=== PATIENT | female | born 1980 | race Caucasian/White ===

== ENCOUNTER → 2017-05-10 | Outpatient (REF) | payer BC ==
[2017-05-12 14:12] LABS: HPV HYBRID CAPTURE II Negative (Negative)
== END ==
LOC: M LAB REF 14:45
DX: Z12.4 Encounter for screening for malignant neoplasm of cervix (principal)
CPT/HCPCS: G0123

== ENCOUNTER → 2017-05-24 | Outpatient (CLI) | payer BC | LOC: M RAD 07:40 | DX: Z12.31 Encounter for screening mammogram for malignant neoplasm of breast (principal); Z80.3 Family history of malignant neoplasm of breast ==

== ENCOUNTER → 2017-06-13 | Outpatient (CLI) | payer BC | LOC: M RAD 16:22 | DX: N63.0 Unspecified lump in unspecified breast (principal) | CPT/HCPCS: 77065 ==

== ENCOUNTER → 2018-05-16 | Outpatient (REF) | payer BC | LOC: M LAB REF 12:21 | PROVIDERS: ATTEND Physician Assistant | DX: J06.9 Acute upper respiratory infection, unspecified (principal) ==

== ENCOUNTER → 2018-05-19 | Outpatient (REF) | payer BC ==
[2018-05-24 00:06] LABS: HPV HYBRID CAPTURE II Negative (Negative)
== END ==
LOC: M LAB REF 14:13
PROVIDERS: ATTEND Advanced Practice Midwife
DX: Z12.4 Encounter for screening for malignant neoplasm of cervix (principal); Z11.51 Encounter for screening for human papillomavirus (HPV)
CPT/HCPCS: 87624; G0123

== ENCOUNTER → 2018-05-27 | Outpatient (CLI) | payer BC ==
[2018-05-27 19:38] LABS: FREE T4 0.99 NG/DL (0.76-1.46); THYROID STIMULATING HORMONE 1.55 uIU/ML (0.358-3.740)
== END ==
LOC: M WUC 09:22
PROVIDERS: ATTEND Advanced Practice Midwife
DX: E07.9 Disorder of thyroid, unspecified (principal)

== ENCOUNTER → 2019-02-12 | Outpatient (REF) | payer BC | LOC: M LAB REF 10:17 | PROVIDERS: ATTEND Physician Assistant | DX: J02.9 Acute pharyngitis, unspecified (principal) ==

== ENCOUNTER → 2020-05-13 | Outpatient (REF) | payer OTHER ==
[2020-05-13 17:51] LABS: ESTRADIOL 24.9 PG/ML; FOLLICLE STIMULATING HORMONE 4.3 mIU/mL; LUTEINIZING HORMONE 1.3 mIU/mL
== END ==
LOC: M PLALAB 15:42
PROVIDERS: ATTEND Obstetrics & Gynecology
DX: N92.1 Excessive and frequent menstruation with irregular cycle (principal)

== ENCOUNTER → 2020-06-29 | Outpatient (CLI) | payer OTHER ==
[2020-06-30 11:01] LABS: ESTRADIOL 182.9 PG/ML; FOLLICLE STIMULATING HORMONE 3.2 mIU/mL; LUTEINIZING HORMONE 6.7 mIU/mL
== END ==
LOC: M LAB 15:07
PROVIDERS: ATTEND Obstetrics & Gynecology
DX: N92.1 Excessive and frequent menstruation with irregular cycle (principal)

== ENCOUNTER → 2020-07-27 | Outpatient (REF) | payer OTHER | LOC: M LAB REF 19:09 | PROVIDERS: ATTEND Physician Assistant | DX: R30.0 Dysuria (principal) ==

== ENCOUNTER → 2020-08-04 | Outpatient (REF) | payer OTHER ==
[2020-08-04 17:49] LABS: HEMATOCRIT 40.6 % (36.0-47.0); MEAN CORPUSCULAR HEMOGLOBIN 28.6 pg (27.0-33.0); MEAN CORPUSCULAR VOLUME 89.4 fl (80.0-96.0); PLATELET COUNT, AUTOMATED 296 10^3/uL (150-450); RED BLOOD COUNT 4.54 10^6/uL (4.00-5.40); WHITE BLOOD COUNT 10.5 10^3/uL (4.0-10.0)
[2020-08-04 19:00] LABS: HIV 1&2 SCREEN CENTAUR NEGATIVE (NEGATIVE)
== END ==
LOC: M PLALAB 15:21
PROVIDERS: ATTEND Advanced Practice Midwife
DX: Z34.91 Encounter for supervision of normal pregnancy, unspecified, first trimester (principal)

== ENCOUNTER → 2020-09-01 | Outpatient (REF) | payer OTHER | LOC: M SFHCWAGY 10:02 | PROVIDERS: ATTEND Advanced Practice Midwife | DX: Z34.91 Encounter for supervision of normal pregnancy, unspecified, first trimester (principal); Z3A.01 Less than 8 weeks gestation of pregnancy ==

== ENCOUNTER → 2020-09-02 | Outpatient (CLI) | payer OTHER | LOC: M PLALAB 10:26 | PROVIDERS: ATTEND Advanced Practice Midwife | DX: O09.521 Supervision of elderly multigravida, first trimester (principal) ==

== ENCOUNTER → 2020-10-27 | Outpatient (CLI) | payer OTHER ==
--- NOTE | 2020-10-27 09:29 | REP ---
INDICATION: ANATOMY [facility] 03/24/21. COMPARISON: None. TECHNIQUE: Multiple ultrasonographic images of the gravid uterus. FINDINGS: There is a single intrauterine gestation. position is variable. heart rate is 142 beats per minute. The placenta is anterior with grade 1 maturity. There is no placenta previa. The umbilical cord inserts centrally onto the placenta. There is a three-vessel cord. Subjectively the amniotic fluid volume is normal. The cervix measures 4.2 cm length. The composite ultrasound gestational age by today's study is 19 weeks 4 days with an ERIC of 03/19/2021. The LMP is unknown. weight is 300 g/0 lb, 10 oz. This is the 78 percentile for 19 weeks 0 days. The following anatomic structures are identified and are unremarkable: Cranium, cavum septum pellucidum, falx, intracranial ventricles, choroid plexus, cerebellum, cisterna magna, facial profile, orbits, upper lip, lungs, cardiac rhythm, four-chamber heart, cardiac right left ventricular outflow tracts, diaphragm, stomach, abdominal wall, right and left kidneys, bladder, spine, right and left upper extremities, right left lower extremities and 3 vessel cord. IMPRESSION: No anomalies are identified. <Electronically signed by Medardo Mcintosh > 10/27/20 [id number]
== END ==
LOC: M WHC 07:31
PROVIDERS: ATTEND Advanced Practice Midwife
DX: Z36.9 Encounter for antenatal screening, unspecified (principal); Z3A.19 19 weeks gestation of pregnancy

== ENCOUNTER → 2020-12-24 | Outpatient (CLI) | payer OTHER ==
[2020-12-24 17:51] LABS: HEMATOCRIT 31.9 % (36.0-47.0); HEMOGLOBIN 10.9 g/dl (12.0-15.5); MEAN CORPUSCULAR HEMOGLOBIN 30.4 pg (27.0-33.0); MEAN CORPUSCULAR HGB CONC 34.2 g/dl (32.0-36.5); MEAN CORPUSCULAR VOLUME 88.9 fl (80.0-96.0); PLATELET COUNT, AUTOMATED 293 10^3/uL (150-450); RED BLOOD COUNT 3.59 10^6/uL (4.00-5.40)
== END ==
LOC: M PLALAB 14:24
PROVIDERS: ATTEND Advanced Practice Midwife
DX: O09.512 Supervision of elderly primigravida, second trimester (principal)

== ENCOUNTER → 2021-01-26 | Outpatient (CLI) | payer OTHER ==
--- NOTE | 2021-01-27 14:28 | REP ---
INDICATION: GROWTH, UTERINE SIZE DATE DISCREPANCY. COMPARISON: 10/27/2020. TECHNIQUE: Real-time sonographic evaluation of the gravid uterus performed. FINDINGS: Estimated gestational age is32 weeks 0 days, EDC 03/23/2021. Today's measurements indicate appropriate growth. Presentation: Cephalic Placenta anterior, grade 1, without evidence of placenta previa. heart rate is recorded at 156 beats per minute. Amniotic fluid is subjectively normal. PAL 21.1, normal 8.6-24.2. Closed cervical length is measured at 4.5 cm. Biometry chart: BPD: 83 mm, 33 weeks 4 days, 72nd percentile. HC: 306 mm, 34 weeks 1 days, 81st percentile AC: 302 mm, 34 weeks 1 days, 83rd percentile Femur length: 61 mm, 31 weeks 6 days, 47th percentile HC to AC ratio: 1.01, normal range 0.95-1.14. Estimated weight: 2197g, 83rd percentile. IMPRESSION: Viable single intrauterine gestation as above. <Electronically signed by Medardo Bhakta > 01/27/21 [id number]
== END ==
LOC: M WHC 15:01
PROVIDERS: ATTEND Obstetrics & Gynecology
DX: O26.849 Uterine size-date discrepancy, unspecified trimester (principal); Z3A.32 32 weeks gestation of pregnancy

== ENCOUNTER → 2021-02-23 | Outpatient (CLI) | payer OTHER | LOC: M WHC 07:04 | PROVIDERS: ATTEND Obstetrics & Gynecology | DX: O26.849 Uterine size-date discrepancy, unspecified trimester (principal) ==

== ENCOUNTER → 2021-02-24 | Outpatient (REF) | payer OTHER ==
[~2021-02-24] MED LIST: COLA100C5 PO; IBUP80TA PO; META28.32 PO; OXYC1TAB23 PO; PRENTAB9 PO; PRIL20TA2 PO; UNIS25TA3 PO
== END ==
LOC: M SFHCWAGY 17:13
PROVIDERS: ATTEND Specialist
DX: Z34.83 Encounter for supervision of other normal pregnancy, third trimester (principal)

== ENCOUNTER → 2021-02-24 | Outpatient (CLI) | payer OTHER ==
--- NOTE | 2021-02-24 15:58 | REP ---
INDICATION: POLYHYDRAMNIOS, THIRD TRIMESTER, NOT APPLICABLE OR UNSP COMPARISON: 01/26/2021 TECHNIQUE: Transabdominal obstetrical ultrasound with color Doppler evaluation. FINDINGS: Examination demonstrates a single live intrauterine in cephalic presentation. motion is identified by technologist. Placenta is noted anterior and grade 2 without evidence for placenta previa or abruption. Amniotic fluid volume is normal. Cervix measures 3.5 cm in length and appears closed.. Selected gestational age: 36 weeks 0 days with ERIC 03/24/2021. Gestational age by current measurements 37 weeks 0 days with ERIC 03/17/2021. FHR equals 136 beats per minute. BPD: 9.3 cm; 30 weeks 0 days; 78% HC: 32.9 cm; 37 weeks 3 days; 73% AC: 34.1 cm; 30 weeks 0 days; 80% FL: 7.0 cm; 36 weeks 0 days; 50% HL: 6.1 cm; 35 weeks 2 days; 38% HC/AC: 0.96 Estimated weight 3222 grams (87thpercentile). Amniotic fluid index: 17.6 cm (7.7-24.9) Umbilical artery SD ratio: 2.17 (1.64-3.51) IMPRESSION: Single live advanced gestation in cephalic presentation demonstrating appropriate interval growth. Amniotic fluid volume is within normal limits and without evidence for polyhydramnios. <Electronically signed by Adriano Mueller > 02/24/21 [id number]
== END ==
LOC: M WHC 13:37
PROVIDERS: ATTEND Obstetrics & Gynecology
DX: O40.3XX0 Polyhydramnios, third trimester, not applicable or unspecified (principal)

== ENCOUNTER → 2022-05-24 | Outpatient (REF) | payer OTHER | LOC: M WUC 16:08 | PROVIDERS: ATTEND Physician Assistant | DX: J02.9 Acute pharyngitis, unspecified (principal) ==

== ENCOUNTER → 2022-06-16 | Outpatient (CLI) | payer OTHER | LOC: M WHC 16:40 | PROVIDERS: ATTEND Nurse Practitioner Adult Health | DX: Z12.31 Encounter for screening mammogram for malignant neoplasm of breast (principal) ==

== ENCOUNTER → 2022-08-17 | Outpatient (CLI) | payer OTHER | LOC: M SOG 07:55 | PROVIDERS: ATTEND Physician Assistant | DX: M79.644 Pain in right finger(s) (principal) ==

== ENCOUNTER → 2023-06-21 | Outpatient (CLI) | payer OTHER | LOC: M WHC 06:58 | PROVIDERS: ATTEND Physician Assistant | DX: Z12.31 Encounter for screening mammogram for malignant neoplasm of breast (principal) ==

== ENCOUNTER → 2023-07-22 | Outpatient (CLI) | payer OTHER | LOC: M PLAIMG 14:40 | PROVIDERS: ATTEND Nurse Practitioner Adult Health | DX: R07.9 Chest pain, unspecified (principal) ==

== ENCOUNTER → 2023-11-25 | Outpatient (CLI) | payer OTHER ==
[2023-11-25 08:16] LABS: BASO # 0.1 10^3/uL (0.0-0.2); BASO % 1.1 % (0.0-1.0); EOS # 0.2 10^3/uL (0.0-0.5); EOS % 3.3 % (0.0-3.0); HEMATOCRIT 42.3 % (36.0-47.0); HEMOGLOBIN 13.7 g/dl (12.0-15.5); LYMPH # 2.4 10^3/uL (1.5-5.0); LYMPH % 32.6 % (24.0-44.0); MEAN CORPUSCULAR HEMOGLOBIN 28.1 pg (27.0-33.0); MEAN CORPUSCULAR HGB CONC 32.4 g/dl (32.0-36.5); MEAN CORPUSCULAR VOLUME 86.7 fl (80.0-96.0); MONO # 0.5 10^3/uL (0.0-0.8); MONO % 7.1 % (2.0-8.0); NEUTROPHILS % 55.8 % (36.0-66.0); PLATELET COUNT, AUTOMATED 306 10^3/uL (150-450); RED BLOOD COUNT 4.88 10^6/uL (4.00-5.40); WHITE BLOOD COUNT 7.2 10^3/uL (4.0-10.0)
[2023-11-25 08:44] LABS: ALBUMIN 3.9 G/DL (3.2-5.2); ALKALINE PHOSPHATASE 102 U/L (46-116); ALT/SGPT 13 U/L (7.0-40); AST/SGOT < 8 U/L (<34); BILIRUBIN,TOTAL 0.4 MG/DL (0.3-1.2); BLOOD UREA NITROGEN 18 MG/DL (9-23); CARBON DIOXIDE LEVEL 28 MMOL/L (20-31); CHLORIDE LEVEL 108 MMOL/L (98-107); CHOLESTEROL LEVEL 167 MG/DL (<200); CHOLESTEROL RISK RATIO 3.45 (<5); CREATININE FOR GFR 0.72 MG/DL (0.55-1.30); GLOMERULAR FILTRATION RATE > 60.0 (>58); GLUCOSE, FASTING 90 MG/DL (60-100); HDL CHOLESTEROL 48.4 MG/DL (>40); LDL CHOLESTEROL 95.8 MG/DL (<100); NON-HDL-C 118.6 MG/DL; POTASSIUM SERUM 4.6 MMOL/L (3.5-5.1); SODIUM LEVEL 140 MMOL/L (136-145); TOTAL PROTEIN 7.2 G/DL (5.7-8.2); TRIGLYCERIDES LEVEL 114 MG/DL (<150)
[2023-11-25 08:48] LABS: FREE T4 1.21 NG/DL (0.89-1.76); THYROID STIMULATING HORMONE 2.008 uIU/ML (0.55-4.78)
== END ==
LOC: M LAB 07:44
PROVIDERS: ATTEND Nurse Practitioner Adult Health
DX: Z13.220 Encounter for screening for lipoid disorders (principal); Z13.29 Encounter for screening for other suspected endocrine disorder; Z13.0 Encounter for screening for diseases of the blood and blood-forming organs and certain disorders involving the immune mechanism

== ENCOUNTER → 2024-07-17 | Outpatient (CLI) | payer OTHER | LOC: M WHC 07:09 | PROVIDERS: ATTEND Nurse Practitioner Adult Health | DX: Z12.31 Encounter for screening mammogram for malignant neoplasm of breast (principal) ==

== ENCOUNTER → 2025-03-05 | Outpatient (REF) | payer OTHER ==
[2025-03-07 17:03] LABS: HPV APTIMA Not Detected (Not Detected)
== END ==
LOC: M SFHCWAGY 11:39
PROVIDERS: ATTEND Nurse Practitioner Family
DX: Z12.4 Encounter for screening for malignant neoplasm of cervix (principal)
CPT/HCPCS: 87624; G0123